=== PATIENT | female | born 1945 | race Caucasian/White ===

== ENCOUNTER 2016-10-17 16:19 | Emergency (ER) | payer MEDICARE, BC ==
[2016-10-17 16:29] VITALS: BP 138/83
--- NOTE | 2016-10-17 17:43 | UC ---
Skin Complaint HPI - HPI Summary HPI Summary: Patient presents with erythematous raised papules with surrounding erythema to the right wrist, and diffuse hives to the right abdomen and right upper thigh. She has had the lesion over the wrist x 1 week and the other 2 patches appeared within the last few days. She was prescribed Triamcinalone 5% cream without improvement. She notes to a hx of shingles on the right side of her body including her face and neck. She states this feels and looks different than shingles. The rash is intensely pruritic. She denies soaps, detergent changes. Denies known environmental exposure or medication changes. - History of Current Complaint Chief Complaint: UCRash Time Seen by Provider: 10/17/16 16:40 Stated Complaint: RASHES Hx Obtained From: Patient ?: No Onset/Duration: Gradual Onset Skin Exposure Onset/Duration: Days Ago Timing: Constant Onset Severity: Moderate Current Severity: Moderate Pain Intensity: 0 Pain Scale Used: 0-10 Numeric Location: Diffuse Aggravating: Nothing Alleviating: Cold Compresses Associated Signs & Symptoms: Positive: Negative - Allergy/Home Medications Allergies/Adverse Reactions: Allergies Allergy/AdvReac Type Severity Reaction Status Date / Time NSAIDs Allergy Hives Verified 11/20/14 09:26 Review of Systems Constitutional: Negative Skin: Rash Eyes: Negative Respiratory: Negative Cardiovascular: Negative Motor: Negative Neurovascular: Negative Musculoskeletal: Negative Psychological: Negative All Other Systems Reviewed And Are Negative: Yes PMH/Surg Hx/FS Hx/Imm Hx Endocrine History: Diabetes - Surgical History Surgical History: Yes Surgery Procedure, Year, and Place: LT KNEE REPLACEMENT, right CARPAL TUNNEL, UMBILICAL HERNIA REPAIR, GALL BLADDER, RT FOOT SURGERY. - Family History Known Family History: Positive: Hypertension - Social History Occupation: Unemployed, Retired Lives: With Family Alcohol Use: Rare Substance Use Type: None Smoking Status (MU): Former Smoker When Did the Patient Quit Smoking/Using Tobacco: - Immunization History Most Recent Tetanus Shot: 2009 Physical Exam Triage Information Reviewed: Yes Appearance: Well-Appearing, No Pain Distress, Well-Nourished Vital Signs: Initial Vital Signs Temp 98.1 F 10/17/16 16:26 Pulse 52 10/17/16 16:26 Resp 18 10/17/16 16:26 BP 138/83 10/17/16 16:26 Pulse Ox 97 10/17/16 16:26 Vital Signs Reviewed: Yes Eye Exam: Normal Eyes: Positive: Conjunctiva Clear Neck exam: Normal Neck: Positive: Supple, Nontender, No Lymphadenopathy Respiratory Exam: Normal Respiratory: Positive: Chest non-tender Cardiovascular Exam: Normal Cardiovascular: Positive: RRR Musculoskeletal Exam: Normal Musculoskeletal: Positive: Strength Intact Neurological Exam: Normal Neurological: Positive: Alert Psychological: Positive: Normal Response To Family Skin Exam: Normal Skin: Positive: Other Course/Dx - Course Course Of Treatment: Intensily pruritic erythematous raised papules with surrounding erythema to the right wrist, and diffuse hives to the right abdomen and right upper thigh. Rash appears to be a contact dermatitis. Based on the dermatologic pattern, it is unlikely this is shingles. No grouped vesicles. Patient denies other symptoms at this time. Triamcinalone 5% given previously. Will give prednisone and atarax. Both safe in elderly. Encouraged benadryl only at night. Follow up with derm. Patient made aware of results and plan and is OK with discharge. Medications reviewed with patient. - Differential Diagnoses - Skin Complaint Differential Diagnoses: Drug Rash, Local Allergic Reaction, Poison [place], Poison [place] - Diagnoses Provider Diagnoses: Contact dermatitis Discharge - Discharge Plan Condition: Stable Disposition: HOME Prescriptions: hydrOXYzine HCL TAB* [Atarax 25 MG TAB*] 25 mg PO TID PRN #15 tab PRN Reason: Itching predniSONE TAB* [Deltasone TAB*] 10 mg PO SEE INSTRUCTIONS #22 tab Patient Education Materials: Contact Dermatitis (ED) Referrals: Desi Dong MD [Primary Care Provider] - Additional Instructions: Follow up with vice president for instruction. Continue to use cream Use Prednisone as prescribed Use Hydroxyzine three times daily as needed for itching, Benadryl 25mg recommended at bedtime Wash hands frequently and try not to touch the affected areas.
== END 2016-10-17 17:17 | disposition home or self-care (01) ==
LOC: UCEAST 16:19
DX: L25.9 Unspecified contact dermatitis, unspecified cause (principal); E11.9 Type 2 diabetes mellitus without complications; Z87.891 Personal history of nicotine dependence
CPT/HCPCS: 99212; G0463

== ENCOUNTER 2019-01-05 10:53 | Emergency (ER) | payer MEDICARE, BC ==
--- OUTSIDE RECORDS SUMMARY | 2019-01-05 10:59 | XMS REPORT | Continuity of Care Document ---
:1945 External Reference #:[id number] Author Name HANANE Rodgers (transmitted by agent of provider Janeth Borrero) Address [address] [place] [address] Care Team Providers Name Role Phone Lena Worthy MD - Internal Care Team Information Electrical Maintenance Mechanic Medicine Desi Dong MD - Internal Care Team Information Electrical Maintenance Mechanic Medicine Colin Tapia MD - Rheumatology Care Team Information Electrical Maintenance Mechanic Samantha Rivrea MD - Hematology & Care Team Information Electrical Maintenance Mechanic [phone] Oncology Problems Active Problems Provider Date Rheumatoid arthritis Desi Dong M.D. Onset: 05/29/2011 Atrial fibrillation Desi Dong M.D. Onset: 11/13/2015 Benign essential hypertension Desi Dong M.D. Onset: 05/29/2011 Monoclonal paraproteinemia Desi Dong M.D. Onset: 02/22/2013 Sleep apnea Desi Dong M.D. Onset: 02/22/2013 Mixed hyperlipidemia Desi Dong M.D. Onset: 05/29/2011 Degenerative joint disease of hand Desi Dong M.D. Onset: 06/01/2010 Lumbosacral spondylosis without myelopathy Colin Tapia M.D. Onset: 2013 Osteoarthritis of knee Colin Tapia M.D. Onset: 01/03/2014 Obesity Carey Mcarthur MD Onset: 03/28/2016 Other synovitis and tenosynovitis, Varun Lozano MD Onset: 08/18/2017 unspecified site Social History Type Date Description Comments Sex Unknown Tobacco Use Start: Unknown End: Former Cigarette Smoker quit in 1974, prior Unknown to that was only a social smoker - not daily ETOH Use Rarely consumes alcohol only when on vacation and a very special occasion Tobacco Use Start: Unknown End: Patient is a former Unknown smoker Recreational Drug Use Denies Drug Use Smoking Status Reviewed: 12/24/18 Patient is a former smoker Exercise Type/Frequency Exercises sporadically Allergies, Adverse Reactions, Alerts Active Allergies Reaction Severity Comments Date Dolobid Urticaria Moderate 10/01/2009 Relafen Urticaria Moderate 10/01/2009 Daypro Urticaria Moderate 10/01/2009 NSAIDS hives 03/29/2017 Medications Active Medications SIG Qnty Indications Ordering Date Provider Walker Swivel Wheels/5 use with 1units M05.79 Zsofia Mitul, 12/24/2018 Adjustment Holes/3" ambulation as ALL ROUND LOGGER 3" Misc needed Hydroxyzine HCL take one tablet 30tabs R21 Jossyofia Mitul, 09/20/2018 25mg Tablets by mouth 3 x ALL ROUND LOGGER daily as needed Clobetasol Propionate apply thin layer 45gm R21 Yojana Galindo MD 09/04/2018 Emollient twice a day on 0.05% Cream affected area Zyrtec Allergy take one tablet 30caps J30.9 Jossyofia Mitul, 03/22/2018 10mg Capsules by mouth in the ALL ROUND LOGGER evening Fluticasone Propionate use 2 sprays in 16units J30.9 Zsofia Mitul, 2017 each nostril one ALL ROUND LOGGER 50mcg/Act Suspension time a day Ventolin HFA inhale 2 puffs 18units J40 Desi 12/05/2017 108(90Base) by mouth four Cotton MArielle mcg/Act Aerosol times a day as needed Azelastine HCL 1 drop each eye 6ml J30.9 Jossyofia Mitul, 10/19/2017 (Ophthalmic) twice daily ALL ROUND LOGGER 0.05% Solution Hydroxychloroquine take 1 tablet 180tabs M05.79 Jossyofia Mitul, 10/19/2017 Sulfate twice a day ALL ROUND LOGGER 200mg Tablets Z79.899 Shingrix 2 doses 6 month 2units Z23 Jossyofirubia Bauman, ALL ROUND LOGGER 09/14/2017 50mcg Suspension apart Rec Methotrexate take 6 tablets 72tabs Z79.899 Zsofia Mitul, [facility] 09/14/2017 2.5mg Tablets every week M05.79 Diclofenac Sodium apply 1 grams on 100gm M25.549 Wilfrido Bauman, 12/19/2016 1% Gel hands twice ALL ROUND LOGGER daily-prn Magnesium Oxide -MG 1 tablet daily 180caps Desi 09/15/2016 Supplement Eusebia Dong 400mg Capsules Wrist Splint use on both wrists QS M25.549 Wilfrido Bauman, 12/12/2014 Elastic/Small/Medium as needed ALL ROUND LOGGER Misc Pantoprazole Sodium take 1 tablet by 180tabs Desi 09/09/2014 40mg mouth twice a day Eusebia Dong Tablets DR Cpap Use nightly 1units Thuy Jovel, 08/10/2014 Device N.P. Potassium Chloride ER Take 1 Tablet By 90tabs Desi 01/19/2014 10Meq Mouth Every Day Eusebia Dong Tablets ER Cpap Mask And Supplies for use at night Thuy Jovel, 08/29/2013 N.P. Clotrimazole/Betamethason apply to affected 15units Desi 02/22/2013 e Dipropionate area twice a day if Eusebia Dong 1-0.05% Cream needed Meclizine HCL 1 tablet 3 times a 30tabs Desi 03/04/2011 12.5mg Tablets day as needed Eusebia Dong Hydrochlorothiazide Take 1 Tablet By 90tabs Desi 03/01/2011 25mg Mouth Once Daily Eusebia Dong Tablets Simvastatin take 1 tablet at 90tabs Desi 08/31/2010 40mg Tablets bedtime. Eusebia Dong Folic Acid take 1 tablet daily 90tabs Z79.899 Wilfrido Bauman, 07/27/2010 1mg Tablets ALL ROUND LOGGER Vitamin D 3 1 tablet once daily Desi 10/06/2009 1000Unit Tablets Eusebia Dong Glucosamine-Chondroitin 1 by mouth twice Desi 10/06/2009 daily Eusebia Dong Capsules Buspirone HCL take 1 tablet By 60tabs Desi 10/01/2009 15mg Tablets Mouth 2 times a Eusebia Dong day. Vitamin B-12 1 po qd 90tabs Unknown 1000mcg Tablets Sub Vesicare 1 by mouth every 30tabs Unknown 10mg Tablets day Eliquis take one by mouth 180tabs Artem Vallejo 5mg Tablets twice a day DO LILIANA Hua Multi Complete/Iron po qd Unknown Tablets Acetaminophen 1-2 tabs 3x a day Unknown 500mg Tablets as needed Humira Pen inject 40 mg 6units Z79.899 Zsofia Mitul, 40mg/0.8ML PNKT subcutaneously ALL ROUND LOGGER every 2 weeks as directed by physician M05.79 Medications Administered in Office Medication SIG Qnty Indications Ordering Provider Date Celestone 3 mg and 3mg Varun Lozano MD 09/08/2017 Injection Celestone 3 mg and 3mg Varun Lozano MD 08/18/2017 Injection Technetium TC 99M Artem Hua DO [facility] 05/17/2017 Tetrofosmin, Per Unit Dose Up To 40 Millicuries Injection NICO Tapia M.D. 05/24/2011 Injection Immunizations CPT Code Status Date Vaccine Lot # [id number] Given 02/05/2018 Fluzone High Dose 67686 Given 02/24/2017 Influenza Virus Vaccine, Quadrivalent, Split, Preservative Free 62063 Given 01/18/2016 Fluzone High Dose 83852 Given 03/09/2015 Influenza Virus Vaccine, Quadrivalent, Split, [id number] Preservative Free 25319 Given 02/25/2014 Pneumococcal Conjugate Vaccine 13 Valent For Intramuscular Use 18178 Given 02/12/2014 Fluzone High Dose 52041 Given 02/22/2013 Flu Vaccine Split Virus Preservative Free For Indiv 3Yr Older [id number] Given 02/14/2011 Afluria Vaccine 05492 Given 08/10/2009 Pneumonia Vaccine 13017 Given 08/10/2009 Tetanus And Diptheria (Td) For Adult Use Preservative Free 50305 Given 02/03/2009 Influenza Virus 3Yrs & Over 84159 Given 07/19/2006 Zoster (Zostavax) 20256 Given 07/19/2006 Zoster (Zostavax) Vital Signs Date Vital Result Comment 12/24/2018 10:01am BP Systolic Sitting 138 mmHg larce cuff /manual BP Diastolic Sitting 80 mmHg larce cuff /manual 12/24/2018 9:40am Height 62 inches 5'2" Weight 238.00 lb Heart Rate 80 /min BP Systolic 152 mmHg BP Diastolic 77 mmHg O2 % BldC Oximetry 98 % BMI (Body Mass Index) 43.5 kg/m2 Results Test Date Facility Test Result H/L Range Note CBC Auto 12/20/2018 [facility] White Blood 6.9 10^3/uL Normal 3.5-10.[address] [place] [address] [phone] Red Blood Count 4.26 10^6/uL Normal 3.70-4.87 Hemoglobin 14.3 g/dL Normal 12.0-16.0 Hematocrit 42 % Normal 35-47 Mean Corpuscular Volume 99 fL High 80-97 Mean Corpuscular Hemoglobin 34 pg High 27-31 Mean Corpuscular HGB Conc 34 g/dL Normal 31-36 Red Cell Distribution Width 14 % Normal 10-15 Platelet Count 232 10^3/uL Normal 150-450 Mean Platelet Volume 8.1 fL Normal 7.4-10.4 Abs Neutrophils 4.2 10^3/uL Normal 1.5-7.7 Abs Lymphocytes 1.8 10^3/uL Normal 1.0-4.8 Abs Monocytes 0.7 10^3/uL Normal 0-0.8 Abs Eosinophils 0.2 10^3/uL Normal 0-0.6 Abs Basophils 0.1 10^3/uL Normal 0-0.2 Abs Nucleated RBC 0.0 10^3/uL Granulocyte % 60.4 % Lymphocyte % 25.4 % Monocyte % 10.6 % Eosinophil % 2.4 % Basophil % 1.2 % Nucleated Red Blood Cells % 0.0 Comp Metabolic 12/20/2018 [facility] Sodium 139 mmol/L Normal 135-[address] [place] [address] [phone] Potassium 4.1 mmol/L Normal 3.5-5.0 Chloride 104 mmol/L Normal 101-111 Co2 Carbon Dioxide 27 mmol/L Normal 22-32 Anion Gap 8 mmol/L Normal 2-11 Glucose 104 mg/dL High 70-100 Blood Urea Nitrogen 8 mg/dL Normal 6-24 Creatinine 0.68 mg/dL Normal 0.51-0.95 BUN/Creatinine Ratio 11.8 Normal 8-20 Calcium 10.3 mg/dL Normal 8.6-10.3 Total Protein 6.8 g/dL Normal 6.4-8.9 Albumin 4.3 g/dL Normal 3.2-5.2 Globulin 2.5 g/dL Normal 2-4 Albumin/Globulin Ratio 1.7 Normal 1-3 Total Bilirubin 0.60 mg/dL Normal 0.2-1.0 Alkaline Phosphatase 100 U/L Normal 34-104 Alt 12 U/L Normal 7-52 Ast 21 U/L Normal 13-39 Egfr Non- 84.4 >60 Egfr 102.1 >60 1 Laboratory test 12/20/2018 [facility] C Reactive 1.05 mg/L Normal <8.[address] [place] [address] [phone] Erythrocyte Sed Rate 17 mm/Hr Normal 0-29 CBC Auto 09/25/2018 [facility] White Blood 7.8 10^3/uL Normal 3.5-10.[address] [place] [address] [phone] Red Blood Count 4.27 10^6/uL Normal 3.70-4.87 Hemoglobin 14.0 g/dL Normal 12.0-16.0 Hematocrit 42 % Normal 35-47 Mean Corpuscular Volume 98 fL High 80-97 Mean Corpuscular Hemoglobin 33 pg High 27-31 Mean Corpuscular HGB Conc 34 g/dL Normal 31-36 Red Cell Distribution Width 14 % Normal 10.5-15 Platelet Count 215 10^3/uL Normal 150-450 Mean Platelet Volume 8.1 fL Normal 7.4-10.4 Abs Neutrophils 5.3 10^3/uL Normal 1.5-7.7 Abs Lymphocytes 1.6 10^3/uL Normal 1.0-4.8 Abs Monocytes 0.7 10^3/uL Normal 0-0.8 Abs Eosinophils 0.2 10^3/uL Normal 0-0.6 Abs Basophils 0.1 10^3/uL Normal 0-0.2 Abs Nucleated RBC 0.0 10^3/uL Granulocyte % 67.2 % Lymphocyte % 20.9 % Monocyte % 8.6 % Eosinophil % 2.4 % Basophil % 0.9 % Nucleated Red Blood Cells % 0.0 Comp Metabolic 09/25/2018 [facility] Sodium 140 mmol/L Normal 135-[address] [place] [address] [phone] Potassium 4.1 mmol/L Normal 3.5-5.0 Chloride 104 mmol/L Normal 101-111 Co2 Carbon Dioxide 28 mmol/L Normal 22-32 Anion Gap 8 mmol/L Normal 2-11 Glucose 97 mg/dL Normal 70-100 Blood Urea Nitrogen 11 mg/dL Normal 6-24 Creatinine 0.76 mg/dL Normal 0.51-0.95 BUN/Creatinine Ratio 14.5 Normal 8-20 Calcium 10.1 mg/dL Normal 8.6-10.3 Total Protein 7.3 g/dL Normal 6.4-8.9 Albumin 4.4 g/dL Normal 3.2-5.2 Globulin 2.9 g/dL Normal 2-4 Albumin/Globulin Ratio 1.5 Normal 1-3 Total Bilirubin 0.70 mg/dL Normal 0.2-1.0 Alkaline Phosphatase 95 U/L Normal 34-104 Alt 11 U/L Normal 7-52 Ast 20 U/L Normal 13-39 Egfr Non- 74.4 >60 Egfr 90.0 >60 2 [place]/Lambda Free 09/25/2018 [facility] [place] Free 2.30 mg/dL Abnormal [address] [place] [address] [phone] Lambda Free Light Chain 1.38 mg/dL 4 [place]/Lambda Free Light Chain 1.67 Abnormal 5 Protein 09/25/2018 [facility] Total 6.8 g/dL 6.3 - Electrophoresis [address] Protein(Pep) 7.9 [place] [address] [phone] Albumin 3.7 g/dL 3.4-4.7 Alpha-1 Globulin 0.2 g/dL 0.1-0.3 Alpha-2 Globulin 1.0 g/dL 0.6-1.0 Beta Globulin 0.9 g/dL 0.7-1.2 Gamma Globulin 1.1 g/dL 0.6-1.6 Albumin/Globulin Ratio 1.16 Impression See Comment 6 CMP Panel 09/17/2018 [facility] Sodium 141 mmol/L Normal 135- [address] [place] [address] [phone] Potassium 4.2 mmol/L Normal 3.5-5.0 Chloride 103 mmol/L Normal 101-111 Co2 Carbon Dioxide 29 mmol/L Normal 22-32 Anion Gap 9 mmol/L Normal 2-11 Glucose 90 mg/dL Normal 70-100 Blood Urea Nitrogen 11 mg/dL Normal 6-24 Creatinine 0.80 mg/dL Normal 0.51-0.95 BUN/Creatinine Ratio 13.8 Normal 8-20 Calcium 10.3 mg/dL Normal 8.6-10.3 Total Protein 6.8 g/dL Normal 6.4-8.9 Albumin 4.4 g/dL Normal 3.2-5.2 Globulin 2.4 g/dL Normal 2-4 Albumin/Globulin Ratio 1.8 Normal 1-3 Total Bilirubin 0.50 mg/dL Normal 0.2-1.0 Alkaline Phosphatase 102 U/L Normal 34-104 Alt 10 U/L Normal 7-52 Ast 19 U/L Normal 13-39 Egfr Non- 70.1 >60 Egfr 84.8 >60 7 CBC W/Auto 09/17/2018 [facility] White Blood 8.0 10^3/uL Normal 3.5-10.[address] [place] [address] [phone] Red Blood Count 4.17 10^6/uL Normal 3.70-4.87 Hemoglobin 14.0 g/dL Normal 12.0-16.0 Hematocrit 41 % Normal 35-47 Mean Corpuscular Volume 98 fL High 80-97 Mean Corpuscular Hemoglobin 34 pg High 27-31 Mean Corpuscular HGB Conc 34 g/dL Normal 31-36 Red Cell Distribution Width 14 % Normal 10.5-15 Platelet Count 229 10^3/uL Normal 150-450 Mean Platelet Volume 8.3 fL Normal 7.4-10.4 Abs Neutrophils 5.0 10^3/uL Normal 1.5-7.7 Abs Lymphocytes 2.0 10^3/uL Normal 1.0-4.8 Abs Monocytes 0.7 10^3/uL Normal 0-0.8 Abs Eosinophils 0.2 10^3/uL Normal 0-0.6 Abs Basophils 0.1 10^3/uL Normal 0-0.2 Abs Nucleated RBC 0.0 10^3/uL Granulocyte % 62.9 % Lymphocyte % 24.7 % Monocyte % 8.5 % Eosinophil % 2.8 % Basophil % 1.1 % Nucleated Red Blood Cells % 0.2 Laboratory test 09/17/2018 [facility] C Reactive < 1.00 Normal <8.[address] Protein mg/[place] [address] [phone] Erythrocyte Sed Rate 32 mm/Hr High 0-29 8 1 Because ethnic data is not always readily available, this report includes an eGFR for both -Americans and non- Americans. The National Kidney Disease Education Program (NKDEP) does not endorse the use of the MDRD equation for patients that are not between the ages of 18 and 70, are , have extremes of body size, muscle mass, or nutritional status, or are non- or non-. According to the National Kidney Foundation, irrespective of diagnosis, the stage of the disease is based on the level of kidney function: Stage Description GFR(mL/min/1.73 m(2)) 1 Kidney damage with normal or decreased GFR 90 2 Kidney damage with mild decrease in GFR 60-89 3 Moderate decrease in GFR 30-59 4 Severe decrease in GFR 15-29 5 Kidney failure <15 (or dialysis) 2 Because ethnic data is not always readily available, this report includes an eGFR for both -Americans and non- Americans. The National Kidney Disease Education Program (NKDEP) does not endorse the use of the MDRD equation for patients that are not between the ages of 18 and 70, are , have extremes of body size, muscle mass, or nutritional status, or are non- or non-. According to the National Kidney Foundation, irrespective of diagnosis, the stage of the disease is based on the level of kidney function: Stage Description GFR(mL/min/1.73 m(2)) 1 Kidney damage with normal or decreased GFR 90 2 Kidney damage with mild decrease in GFR 60-89 3 Moderate decrease in GFR 30-59 4 Severe decrease in GFR 15-29 5 Kidney failure <15 (or dialysis) 3 REFERENCE VALUE 0.3300-1.94 4 REFERENCE VALUE 0.5700-2.63 5 Elevated free light chain ratios between 1.66 and 3.00 may occur due to polyclonal hypergammaglobulinemia or impaired renal clearance. An isolated increased free light chain ratio in this range should be interpreted with caution, and clinical correlation is recommended. REFERENCE VALUE 0.2600-1.65 Test Performed by: [facility] [employer] [place] [address] 6 RESULT: No apparent monoclonal protein on serum electrophoresis. Test Performed by: [facility] [employer] [place] [address] 7 Because ethnic data is not always readily available, this report includes an eGFR for both -Americans and non- Americans. The National Kidney Disease Education Program (NKDEP) does not endorse the use of the MDRD equation for patients that are not between the ages of 18 and 70, are , have extremes of body size, muscle mass, or nutritional status, or are non- or non-. According to the National Kidney Foundation, irrespective of diagnosis, the stage of the disease is based on the level of kidney function: Stage Description GFR(mL/min/1.73 m(2)) 1 Kidney damage with normal or decreased GFR 90 2 Kidney damage with mild decrease in GFR 60-89 3 Moderate decrease in GFR 30-59 4 Severe decrease in GFR 15-29 5 Kidney failure <15 (or dialysis) 8 ORDERED:09/12/18 :03/15/19 STANDING ORDER Procedures Date Code Description Status 10/04/2018 [id number] Mammogram Completed 04/18/2017 [id number] Bone Mineral Density Test Completed 03/24/2016 [id number] Mammogram Completed 03/19/2015 [id number] Bone Mineral Density Test Completed 01/10/2014 [id number] Mammogram Completed 01/01/2013 [id number] Bone Mineral Density Test Completed 01/01/2013 [id number] Mammogram Completed 05/11/2012 [id number] Colonoscopy Completed 12/12/2011 [id number] Mammogram Completed 06/30/2011 [id number] Bone Mineral Density Test Completed 12/09/2010 [id number] Bone Mineral Density Test Completed 12/09/2010 [id number] Mammogram Completed Medical Devices Description No Information Available Encounters Type Date Location Provider Dx Diagnosis Office Visit 09/20/2018 Rheumatology Wilfrido Romek, M05.79 Rheu arthritis w 9:00a [facility] rheu factor mult [facility] site w/o org/sys involv R21 Rash and other nonspecific skin eruption Z79.899 Other halfway (current) drug therapy Office Visit 09/04/2018 11:00a [facility] Internal Isai Daugherty Rash and other Medicine - [facility] nonspecific skin eruption Assessments Date Code Description Provider 12/24/2018 M05.79 Rheumatoid arthritis with rheumatoid factor of Jossyofia HANANE Bauman [facility] site 12/24/2018 Z79.899 Other terminal press operator (current) drug therapy Jossyofia Mitul, ALL ROUND LOGGER 09/20/2018 M05.79 Rheumatoid arthritis with rheumatoid factor of Jossyofia HANANE Bauman [facility] site 09/20/2018 R21 Rash and other nonspecific skin eruption Yancya HANANE Bauman 09/20/2018 Z79.899 Other terminal press operator (current) drug therapy Jossyofia Mitul, ALL ROUND LOGGER 09/04/2018 R21 Rash and other nonspecific skin eruption Yojana Galindo MD Plan of Treatment Future Appointment(s):03/28/2019 11:30 am - HANANE Rodgers at [facility]03/13/2019 11:30 am - Carey Mcarthur MD at [facility]12/24/2018 - SARAN RodgersPM05.79 Rheumatoid arthritis with rheumatoid factor of multiple siteNew Medication:Walker Swivel Wheels/5 Adjustment Holes/3" 3" - use with ambulation as neededComments:Your arthritis seems to be clinically and symptomatically well controlled at this time.Your inflammatory markers are within normal range.Your latest laboratory tests indicate no detectable impairment of kidney and liver functions.Please, continue with the present medication regime.Continue with regular blood tests. You will need to have a blood test done about a week prior to your next appointment. You have a standing lab order on file. Refills will be sent to your pharmacy.Please call the office ifyou develop any sign or symptoms of infection or acute change in your health.Follow up:3 month labs [id number] Other halfway (current) drug therapyComments:Please call if have sign or symptoms of infection. Please be sure to get the flu shot late Januaryor early February. Functional Status Description No Information Available Mental Status Description No Information Available Referrals Description No Information Available
[2019-01-05 11:05] VITALS: BP 136/63
--- NOTE | 2019-01-05 11:43 | UC ---
Back Pain HPI - HPI Summary HPI Summary: 73-year-old woman comes in with a chief complaint of low back pain. Started about 5 days ago. Patient does not know of any specific trauma although she had been doing some lifting. Pain is primarily in the lower lumbar region and radiates horizontally to both sides. Denies any radiation down the buttocks and legs. Pain is worse with twisting turning bending. It's better with rest. At rest there is no pain. She describes the exacerbations pains and spasms in the back. Denies any fevers or chills or abdominal pain or change in urine or bowels. No weakness or numbness. Has taken acetaminophen with minimal relief. - History of Current Complaint Chief Complaint: UCBackPain Stated Complaint: BACK PAIN Time Seen by Provider: 01/05/19 11:23 Pain Intensity: 5 - Allergies/Home Medications Allergies/Adverse Reactions: Allergies Allergy/AdvReac Type Severity Reaction Status Date / Time NSAIDS Allergy Hives Uncoded 01/05/19 11:06 Home Medications: Home Medications Adalimumab (NF) [Humira Pen (NF)] 40 mg SC SEE INSTRUCTIONS 01/05/19 [History Confirmed 01/05/19] Albuterol HFA INHALER* [Ventolin HFA Inhaler*] 2 puff INH Q6H PRN 01/05/19 [ History Confirmed 01/05/19] Cholecalciferol (Vitamin D3) [Vitamin D3] 1,000 unit PO DAILY 01/05/19 [History Confirmed 01/05/19] Clotrimazole/Betamethasone* [Lotrisone Cream*] 1 applic TOPICAL BID PRN [History Confirmed 01/05/19] Cyanocobalamin TAB* [Vitamin B12 TAB*] 1,000 mcg PO DAILY 01/05/19 [History Confirmed 01/05/19] Fluticasone HFA 110 mcg(NF) [Flovent HFA 110 mcg(NF)] 1 puff INH QID 01/05/19 [ History Confirmed 01/05/19] Folic Acid TAB* [Folvite TAB*] 1 mg PO DAILY 01/05/19 [History Confirmed ] Magnesium Oxide [Magnesium] 500 mg PO DAILY 01/05/19 [History Confirmed 01/05/19 ] Meclizine TAB* [Antivert 12.5 TAB*] 12.5 mg PO TID PRN 01/05/19 [History Confirmed 01/05/19] Methotrexate TAB* 6 tab PO WEEKLY 01/05/19 [History Confirmed 01/05/19] Multivitamin/Iron/Folic Acid [Multivitamin with Iron Tablet] 1 each PO DAILY [History Confirmed 01/05/19] Pantoprazole TAB * [Protonix TAB*] 40 mg PO DAILY 01/05/19 [History Confirmed ] Potassium Chlor TAB* [Klor Con ER TAB*] 10 meq PO DAILY 01/05/19 [History Confirmed 01/05/19] PMH/Surg Hx/FS Hx/Imm Hx Previously Healthy: Yes - RA Endocrine History: Dyslipidemia Cardiovascular History: Hypertension Respiratory History: Asthma GI/ History: Gastroesophageal Reflux - Surgical History Surgical History: Yes Surgery Procedure, Year, and Place: LT KNEE REPLACEMENT, right CARPAL TUNNEL, UMBILICAL HERNIA REPAIR, GALL BLADDER, RT FOOT SURGERY. total L shoulder - Family History Known Family History: Positive: Hypertension - Social History Alcohol Use: None Substance Use Type: None Smoking Status (MU): Former Smoker When Did the Patient Quit Smoking/Using Tobacco: - Immunization History Most Recent Tetanus Shot: 2009 Review of Systems All Other Systems Reviewed And Are Negative: Yes Constitutional: Positive: Negative Skin: Positive: Negative Eyes: Positive: Negative ENT: Positive: Negative Respiratory: Positive: Negative Cardiovascular: Positive: Negative Gastrointestinal: Positive: Negative Genitourinary: Positive: Negative Motor: Positive: Negative Neurovascular: Positive: Negative Musculoskeletal: Positive: Other: - SEE HPI Neurological: Positive: Negative Psychological: Positive: Negative Is Patient Immunocompromised?: Yes - RA; ON HUMIRA AND METHOTREXATE Physical Exam Triage Information Reviewed: Yes Appearance: Well-Appearing, No Pain Distress, Well-Nourished Vital Signs: Initial Vital Signs Temp 98.6 F 01/05/19 10:57 Pulse 96 01/05/19 10:57 Resp 16 01/05/19 10:57 BP 136/63 01/05/19 10:57 Pulse Ox 97 01/05/19 10:57 Vital Signs Reviewed: Yes Eye Exam: Normal Eyes: Positive: Conjunctiva Clear Neck: Positive: Supple Respiratory: Positive: Lungs clear, Normal breath sounds, No respiratory distress Cardiovascular: Positive: RRR Abdomen Description: Positive: Nontender, Soft. Negative: CVA Tenderness (R), CVA Tenderness (L) Bowel Sounds: Positive: Present Musculoskeletal: Positive: Strength Intact, ROM Intact, Other: - Tender to palpation lower lumbar area in the midline and also to the sides. Also some tenderness in the midline of the upper lumbar region. No flank tenderness to palpation. Neurological: Positive: Alert, Muscle Tone Normal Skin Exam: Normal Back Pain Course/Dx - Course Course Of Treatment: At this time the patient's exam and history is consistent with low back musculoskeletal pain. She describes the pain as spasm. The pain is intermittent. There is no pain at rest. Pain is worse with any twisting turning bending. No abdominal pain which urinary or bowel symptoms. No neurologic deficits no radiculopathy. Patient denies any history of osteoporosis. We discussed the possibility of compression fracture. Patient cannot take ibuprofen due to her other medications and history of GERD. She's tells me she's had muscle relaxers in the past and tolerated them well. Plan is to use Flexeril primarily in the evening and acetaminophen during the day. Follow-up with her primary care doctor get reevaluated sooner if worse or any questions or concerns. I did let her know that if she didn't get any abdominal pain or the pain was worse or fevers or chills or felt ill or weakness or numbness she needs to get reevaluated in the emergency department. - Differential Dx/Diagnosis Provider Diagnosis: Low back pain Discharge ED - Sign-Out/Discharge Documenting (check all that apply): Patient Departure All imaging exams completed and their final reports reviewed: No Studies - Discharge Plan Condition: Stable Disposition: HOME Prescriptions: Cyclobenzaprine TAB* [Flexeril 10 MG TAB*] 10 mg PO TID PRN #15 tab PRN Reason: Pain - Moderate Patient Education Materials: Acute Low Back Pain (ED), Lower Back Exercises (ED ) Referrals: Desi Dong MD [Primary Care Provider] - Additional Instructions: FOLLOW UP WITH YOUR DOCTOR. GO TO THE EMERGENCY DEPARTMENT IF YOUR CONDITION WORSENS; PAIN, WEAKNESS, NUMBNESS, ABDOMINAL PAIN, YOU FEEL ILL, OR ANY QUESTIONS OR CONCERNS. - Billing Disposition and Condition Condition: STABLE Disposition: Home
== END 2019-01-05 12:02 | disposition home or self-care (01) ==
LOC: UCEAST 10:53
DX: M54.5 Low back pain (principal); M06.9 Rheumatoid arthritis, unspecified; E78.5 Hyperlipidemia, unspecified; I10 Essential (primary) hypertension; K21.9 Gastro-esophageal reflux disease without esophagitis; J45.909 Unspecified asthma, uncomplicated; Z87.891 Personal history of nicotine dependence
CPT/HCPCS: 81003; 87086; 99212; G0463

== ENCOUNTER 2019-01-08 13:58 | Emergency (ER) | payer MEDICARE, BC ==
[2019-01-08 16:57] LABS: Urine Appearance Clear; Urine Bacteria Absent (Absent); Urine Bilirubin Negative (Negative); Urine Blood Negative (Negative); Urine Color Straw; Urine Glucose Negative (Negative); Urine Ketones Negative (Negative); Urine Nitrite Negative (Negative); Urine Protein Negative (Negative); Urine Red Blood Cell Trace(0-2/hpf) (Absent); Urine Specific Gravity 1.004 (1.010-1.030); Urine Squamous Epithelial Cell Present (Absent); Urine Urobilinogen Negative (Negative); Urine White Blood Cell Absent (Absent)
--- NOTE | 2019-01-08 17:20 | ED ---
Back Pain - HPI Summary HPI Summary: This patient is a 73 year old F presenting to [facility] with a chief complaint of lower back pain radiating upwards since one week ago. Pt does not usually have back pain. Pt went to convenient care on 01/05/19, and UA was clear. Per triage, the patient rates the pain 4/10 in severity. Symptoms aggravated by movement. No alleviation by muscle relaxant. Patient denies urinary symptoms, no fever, chills, N/V/D, weakness in legs, issues going to bathroom, numbness. Pt has a PMHx of a fib, sleep apnea, high cholesterol, rheumatoid and osteoarthritis, and anxiety. She has no Hx of IV drug use. Medications reviewed. Allergies noted - History of Current Complaint Chief Complaint: EDBackInjuryPain Stated Complaint: KIDNEY/BACK PAIN PER PT Time Seen by Provider: 01/08/19 16:59 Hx Obtained From: Patient Onset/Duration: Gradual Onset, Lasting Weeks, Still Present Onset/Duration: Started Weeks Ago, Still Present Timing: Constant Back Pain Location: Is Diffuse Severity Initially: Moderate Severity Currently: Moderate Pain Intensity: 4 Pain Scale Used: 0-10 Numeric Character: Spasmodic Aggravating Symptom(s): Movement Alleviating Symptom(s): Nothing Associated Signs And Symptoms: Negative: Weakness, Numbness, Bladder Incontinence, Bowel Incontinence - Allergies/Home Medications Allergies/Adverse Reactions: Allergies Allergy/AdvReac Type Severity Reaction Status Date / Time NSAIDS Allergy Hives Uncoded 01/05/19 11:06 PMH/Surg Hx/FS Hx/Imm Hx Endocrine/Hematology History: Denies: Hx Diabetes, Hx Thyroid Disease Cardiovascular History: Denies: Hx Hypertension Respiratory History: Reports: Hx Chronic Obstructive Pulmonary Disease (COPD) Denies: Hx Asthma GI History: Denies: Hx Ulcer Musculoskeletal History: Denies: Hx Osteoporosis - Cancer History Hx Chemotherapy: No Hx Radiation Therapy: No - Surgical History Surgery Procedure, Year, and Place: LT KNEE REPLACEMENT, right CARPAL TUNNEL, UMBILICAL HERNIA REPAIR, GALL BLADDER, RT FOOT SURGERY. total L shoulder Infectious Disease History: No Infectious Disease History: Reports: Hx Shingles Denies: Hx Clostridium Difficile, Hx Hepatitis, Hx Human Immunodeficiency Virus (HIV), Hx of Known/Suspected MRSA, Hx Tuberculosis, Hx Known/Suspected VRE , Hx Known/Suspected VRSA, History Other Infectious Disease, Traveled Outside the [place] in Last 30 Days - Family History Known Family History: Positive: Hypertension - Social History Lives: With Family Alcohol Use: None Substance Use Type: Reports: None Hx Tobacco Use: No Smoking Status (MU): Former Smoker Review of Systems Negative: Fever, Chills Negative: Vomiting, Diarrhea, Nausea Positive: no symptoms reported Positive: Other - pos - back pain Negative: Weakness, Numbness All Other Systems Reviewed And Are Negative: Yes Physical Exam - Summary Physical Exam Summary: Constitutional: Well-developed, Well-nourished, Alert. (-) Distressed Skin: Warm, Dry HENT: Normocephalic; Atraumatic Eyes: Conjunctiva normal Neck: Musculoskeletal ROM normal neck. (-) JVD, (-) Stridor, (-) Tracheal deviation Cardio: Rhythm regular, rate normal, Heart sounds normal; Intact distal pulses; The pedal pulses are 2+ and symmetric. Radial pulses are 2+ and symmetric. (-) Murmur Pulmonary/Chest wall: Effort normal. (-) Respiratory distress, (-) Wheezes, (-) Rales Abd: Soft, (-) Distension, (-) Guarding, (-) Rebound, Left flank tenderness. Musculoskeletal: (-) Edema, limited ROM in flexion and extension of the back; no midline tenderness Lymph: (-) Cervical adenopathy Neuro: Alert, Oriented x3 Psych: Mood and affect Normal Triage Information Reviewed: Yes Vital Signs On Initial Exam: Initial Vitals Temp Pulse Resp BP Pulse Ox 98.2 F 89 18 154/87 98 01/08/19 14:00 01/08/19 14:00 01/08/19 14:00 01/08/19 14:00 01/08/19 14:00 Vital Signs Reviewed: Yes Diagnostics - Vital Signs Vital Signs Temp Pulse Resp BP Pulse Ox 01/08/19 14:00 98.2 F 89 18 154/87 98 - Laboratory Lab Results: Lab Results 01/08/19 Range/Units 15:58 Urine Color Straw Urine Appearance Clear Urine pH 8.0 (5-9) Ur Specific [place] 1.004 L (1.010-1.030) Urine Protein Negative (Negative) Urine Ketones Negative (Negative) Urine Blood Negative (Negative) Urine Nitrate Negative (Negative) Urine Bilirubin Negative (Negative) Urine Urobilinogen Negative (Negative) Ur Leukocyte Esterase Trace A (Negative) Urine WBC (Auto) Absent (Absent) Urine RBC (Auto) Trace(0-2/hpf) (Absent) Ur Squamous Epith Cells Present A (Absent) Urine Bacteria Absent (Absent) Urine Glucose Negative (Negative) Urine Ascorbic Acid * A (Negative) Result Diagrams: 01/08/19 17:41 01/08/19 17:41 Lab Statement: Any lab studies that have been ordered have been reviewed, and results considered in the medical decision making process. Re-Evaluation - Re-Evaluation First Eval Re-Evaluation Time: 19:45 Comment: Discussed plan to discharge with pt. Back Pain Course/Dx - Course Course Of Treatment: Patient is here with bilateral flank pain. Patient's pain is worse on the left. Patient was seen at urgent care on Monday with a negative UA. Patient continues to have symptoms that she is here. Patient has no reflex symptoms of back pain outside of being on Humira. Due to her urinary use, patient had an ESR and CRP performed which were grossly unremarkable. Patient had a normal white blood cell count. Patient negative UA for any infection. I do not believe this represents a underlying infection, pyelonephritis. Patient was discharged on lidocaine patches and Flexeril. - Diagnoses Provider Diagnoses: Bilateral flank pain Discharge ED - Sign-Out/Discharge Documenting (check all that apply): Patient Departure - Discharge Patient Received Moderate/Deep Sedation with Procedure: No - Discharge Plan Condition: Stable Disposition: HOME Prescriptions: Cyclobenzaprine TAB* [Flexeril 10 MG TAB*] 10 mg PO BID PRN #12 tab PRN Reason: muscle cramping Lidocaine PATCH 5%* [Lidoderm 5% Patch*] 1 patch TRANSDERM DAILY #7 patch Patient Education Materials: Flank Pain (ED) Referrals: Desi Dong MD [Primary Care Provider] - As Soon As Possible Additional Instructions: Continue muscle relaxant, try patches prescribed today, and take Tylenol as well for pain. Please follow up with your primary care physician as soon as possible. PLEASE RETURN TO EMERGENCY DEPARTMENT FOR ANY NEW OR WORSENING SYMPTOMS. - Billing Disposition and Condition Condition: STABLE Disposition: Home - Attestation Statements Document Initiated by Scribe: Yes Documenting Scribe: Vanessa Tovar Provider For Whom Scribe is Documenting (Include Credential): Sonido Diggs MD Scribe Attestation: Vanessa Lima, scribed for Sonido Diggs MD on 01/08/19 at 2053. Scribe Documentation Reviewed: Yes Provider Attestation: The documentation as recorded by the scribeVanessa accurately reflects the service I personally performed and the decisions made by me, Sonido Diggs MD Status of Scribe Document: Viewed
[2019-01-08 17:51] LABS: ABS Basophils 0.1 10^3/ul (0-0.2); ABS Eosinophils 0.2 10^3/ul (0-0.6); ABS Lymphocytes 2.2 10^3/ul (1.0-4.8); ABS Monocytes 0.8 10^3/ul (0-0.8); ABS Neutrophils 4.7 10^3/ul (1.5-7.7); Eosinophil % 2.2 %; Hematocrit 42 % (35-47); Hemoglobin 14.5 g/dL (12.0-16.0); Lymphocyte % 27.8 %; Mean Corpuscular HGB Conc 35 g/dL (31-36); Mean Corpuscular Hemoglobin 34 pg (27-31); Mean Corpuscular Volume 98 fL (80-97); Mean Platelet Volume 7.7 fL (7.4-10.4); Platelet Count 222 10^3/uL (150-450); Red Blood Count 4.25 10^6 /uL (3.70-4.87); Red Cell Distribution Width 14 % (10-15); White Blood Count 7.9 10^3/uL (3.5-10.8)
[2019-01-08 18:21] LABS: Albumin 4.3 g/dL (3.2-5.2); Albumin/Globulin Ratio 1.5 (1-3); BUN/Creatinine Ratio 10.4 (8-20); C Reactive Protein 5.12 mg/L (<8.01); Calcium 10.4 mg/dL (8.6-10.3); EGFR African American 103.8 (>60); EGFR Non-African American 85.8 (>60); Globulin 2.8 g/dL (2-4); Potassium 3.7 mmol/L (3.5-5.0); Total Bilirubin 0.6 mg/dL (0.2-1.0); Total Protein 7.1 g/dL (6.4-8.9)
[2019-01-08 19:48] LABS: Erythrocyte Sed Rate 22 mm/Hr (0-29)
[2019-01-08 20:15] VITALS: BP 157/83
== END 2019-01-08 20:13 | disposition home or self-care (01) ==
LOC: ED 13:58
DX: M54.5 Low back pain (principal); E78.00 Pure hypercholesterolemia, unspecified; J44.9 Chronic obstructive pulmonary disease, unspecified; I48.91 Unspecified atrial fibrillation; Z79.01 Long term (current) use of anticoagulants; M06.9 Rheumatoid arthritis, unspecified; F41.9 Anxiety disorder, unspecified; Z96.652 Presence of left artificial knee joint; Z88.6 Allergy status to analgesic agent; Z87.891 Personal history of nicotine dependence
CPT/HCPCS: 36415; 80053; 81003; 81015; 85025; 85652; 86140; 87086; 99283

== ENCOUNTER 2019-01-26 09:26 | Emergency (ER) | payer MEDICARE, BC ==
--- NOTE | 2019-01-26 09:59 | ED ---
Back Pain - HPI Summary HPI Summary: Patient is a 73-year-old female who presents emergency department for back pain 4 weeks. Patient does not recall any specific injuries or falls. Patient notes that pain starts in her lower back and radiates diffusely. She denies associated symptoms of fever, cough, chest pain, shortness of breath, abdominal pain, vomiting, diarrhea, urinary symptoms. Patient has been seen in the ER twice for this complaint as well as her family doctor. Patient has had blood work and urinalysis that is unremarkable. Patient has been prescribed muscle relaxers only came crutches with minimal relief of pain. Patient is also going to physical therapy with minimal relief of pain. Symptoms are [id number] in severity. Movement makes symptoms worse. Rest makes symptoms better. Also denies associated symptoms of radicular pain into legs, numbness, tingling or weakness, bowel or bladder incontinence or retention. - History of Current Complaint Chief Complaint: EDBackInjuryPain Stated Complaint: "BACK PAIN PER PT" Time Seen by Provider: 01/26/19 09:44 Hx Obtained From: Patient Pain Intensity: 7 - Allergies/Home Medications Allergies/Adverse Reactions: Allergies Allergy/AdvReac Type Severity Reaction Status Date / Time NSAIDS Allergy Hives Uncoded 01/05/19 11:06 PMH/Surg Hx/FS Hx/Imm Hx Previously Healthy: Yes Endocrine/Hematology History: Denies: Hx Diabetes, Hx Thyroid Disease Cardiovascular History: Denies: Hx Hypertension Respiratory History: Reports: Hx Chronic Obstructive Pulmonary Disease (COPD) Denies: Hx Asthma GI History: Denies: Hx Ulcer Musculoskeletal History: Denies: Hx Osteoporosis - Cancer History Hx Chemotherapy: No Hx Radiation Therapy: No - Surgical History Surgery Procedure, Year, and Place: LT KNEE REPLACEMENT, right CARPAL TUNNEL, UMBILICAL HERNIA REPAIR, GALL BLADDER, RT FOOT SURGERY. total L shoulder Infectious Disease History: No Infectious Disease History: Reports: Hx Shingles Denies: Hx Clostridium Difficile, Hx Hepatitis, Hx Human Immunodeficiency Virus (HIV), Hx of Known/Suspected MRSA, Hx Tuberculosis, Hx Known/Suspected VRE , Hx Known/Suspected VRSA, History Other Infectious Disease, Traveled Outside the [place] in Last 30 Days - Family History Known Family History: Positive: Hypertension, Non-Contributory - Social History Occupation: Retired Lives: With Family Alcohol Use: None Substance Use Type: Reports: None Hx Tobacco Use: No Smoking Status (MU): Former Smoker Review of Systems Constitutional: Negative Negative: Fever, Chills Cardiovascular: Negative Negative: Chest Pain Respiratory: Negative Negative: Shortness Of Breath Gastrointestinal: Negative Negative: Abdominal Pain, Vomiting, Nausea Genitourinary: Negative Negative: dysuria, flank pain, hematuria Positive: Other - Low back pain Skin: Negative Neurological: Negative Negative: Weakness, Paresthesia, Numbness All Other Systems Reviewed And Are Negative: Yes Physical Exam Triage Information Reviewed: Yes Vital Signs On Initial Exam: Initial Vitals Temp Pulse Resp BP Pulse Ox 98.8 F 84 18 138/84 95 01/26/19 09:33 01/26/19 09:33 01/26/19 09:33 01/26/19 09:33 01/26/19 09:33 Vital Signs Reviewed: Yes Appearance: Positive: Well-Appearing - Pt. sitting in chair in NAD. Pleasant. present. Skin: Positive: Warm, Dry Head/Face: Positive: Normal Head/Face Inspection Eyes: Positive: Normal, EOMI Neck: Positive: Supple Musculoskeletal: Positive: Normal, Strength/ROM Intact, Other - 5/5 strength in bilateral LEs. Midline tenderness to lower T spine. No CVA tenderness. Neurological: Positive: Normal, CN Intact II-III Psychiatric: Positive: Affect/Mood Appropriate Diagnostics - Vital Signs Vital Signs Temp Pulse Resp BP Pulse Ox 01/26/19 09:33 98.8 F 84 18 138/84 95 - Laboratory Lab Statement: Any lab studies that have been ordered have been reviewed, and results considered in the medical decision making process. Back Pain Course/Dx - Course Course Of Treatment: Patient presenting with ongoing midline tenderness. She is afebrile and well-appearing. No radicular symptoms or evidence of cauda equina syndrome. X-rays of the thoracic and lumbar spine obtained and show multilevel vertebral compressions of unknown chronicity, reading per radiology. They given patient's pain suspect these fractures are new for her. Prescribe her a few days of hydrocodone for pain. Advised to follow-up with PCP next week. Patient understands and agrees with plan. - Diagnoses Differential Diagnosis/HQI/PQRI: Positive: Aneurysm, Arthritis, Fracture, Herniated Disc, Strain, Sprain Provider Diagnoses: Compression fracture, Back pain Discharge ED - Sign-Out/Discharge Documenting (check all that apply): Patient Departure Patient Received Moderate/Deep Sedation with Procedure: No - Discharge Plan Condition: Good Disposition: HOME Prescriptions: Hydrocodone/Acetaminophen [Hydrocodone-Acetamin 5-325 mg] 1 each PO Q6H #20 tablet MDD 4 Patient Education Materials: Vertebral Compression Fracture (ED) Referrals: Desi Dong MD [Primary Care Provider] - Additional Instructions: Call PCP on Monday for a close follow up appointment Take pain medication as directed instead of Tylenol Return to ER if symptoms change or worsen - Billing Disposition and Condition Condition: GOOD Disposition: Home
[2019-01-26] MEDS ORDERED: HYDROcodone/ACETAMIN 5-325 MG* 1 TAB PO ONE (11:19)
[2019-01-26 11:35] VITALS: BP 156/112
== END 2019-01-26 11:33 | disposition home or self-care (01) ==
LOC: ED 09:26
DX: M48.54XA Collapsed vertebra, not elsewhere classified, thoracic region, initial encounter for fracture (principal); M85.88 Other specified disorders of bone density and structure, other site; J44.9 Chronic obstructive pulmonary disease, unspecified; Z96.652 Presence of left artificial knee joint; Z96.612 Presence of left artificial shoulder joint; Z87.891 Personal history of nicotine dependence; Z88.6 Allergy status to analgesic agent; Z79.899 Other long term (current) drug therapy
CPT/HCPCS: 72070; 72110; 99282

== ENCOUNTER 2023-12-13 08:56 | Inpatient (IN) ==
[2023-12-13] MEDS: Morphine 4 MG/ML VIAL (1 ml) IV ONE ×2 (11:11→12:13)
[2023-12-13] MEDS: Lactated Ringers 1000 ml BAG 1,000 ML IV ONE ×2 (11:11→18:12)
[2023-12-13 11:25] LABS: ABS Lymphocytes 0.7 10^3/uL (1.0-4.8); ABS Monocytes 1.4 10^3/uL (0.0-0.9); ABS Neutrophils 16.2 10^3/uL (1.5-7.6); ABS Nucleated RBC 0.01 10^3/ul; Eosinophil % 0.1 %; Hematocrit 26.4 % (35-45); Hemoglobin 8.2 g/dL (11.5-14.3); Lymphocyte % 3.8 %; Mean Corpuscular Hgb Conc 31.2 g/dL (31-36); Mean Platelet Volume 6.6 fL (7.5-11.2); Nucleated Red Blood Cells % 0.1 %/100WBC (0.0-0.8); Platelet Count 465 10^3/uL (150-450); Red Blood Count 2.75 10^6/uL (3.63-4.92); Red Cell Distribution Width 20.9 % (12-17); White Blood Count 18.3 10^3/uL (3.8-11.8)
[2023-12-13 12:03] LABS: ALT 5 U/L (7-52); Albumin 3.1 g/dL (3.2-5.2); Albumin/Globulin Ratio 1.2 (1-3); Alkaline Phosphatase 70 U/L (35-149); Anion Gap 7 mmol/L (2-16); Blood Urea Nitrogen 12 mg/dL (6-24); C Reactive Protein 112.77 mg/L (<8.01); CO2 Carbon Dioxide 26 mmol/L (22-32); Calcium 8.9 mg/dL (8.6-10.3); Chloride 101 mmol/L (101-111); Creatinine, Serum 0.52 mg/dL (0.51-0.95); Globulin 2.5 g/dL (2-4); Glucose 106 mg/dL (70-100); Sodium 134 mmol/L (135-145); Total Bilirubin 0.5 mg/dL (0.2-1.0); Total Protein 5.6 g/dL (6.4-8.9); eGFR CKD-EPI 93.9 (>60)
[2023-12-13] MEDS: Iohexol 300 (CONTRAST) 10 ML SDV IV ONE (13:09)
[2023-12-13 14:22] LABS: Potassium Redraw 4.3 mmol/L (3.5-5.0)
[2023-12-13] MEDS: Piperacillin/Tazobac 3.375 BAG 3.375 GM/100 ML BAG IV ONE (14:34)
[2023-12-13 16:41] LABS: Urine Appearance Clear; Urine Bilirubin Negative (Negative); Urine Blood Negative (Negative); Urine Color Light-Yellow; Urine Glucose Negative (Negative); Urine Ketones Negative (Negative); Urine Nitrite Negative (Negative); Urine Protein Trace (Negative); Urine Specific Gravity >1.050 (1.002-1.030); Urine Urobilinogen Negative (Negative); Urine pH 6.5 (5.0-8.0)
[2023-12-13] MEDS ORDERED: Zosyn per Pharmacy NOTE FOLLOW UP SCH (18:00)
[2023-12-13] MEDS: ZOSYN 3.375 GM Q8H per EXTENDED INFUSION IV SCH (19:49)
[2023-12-13] MEDS: Morphine 2 MG/ML SYRINGE IV PRN (23:16)
[2023-12-14 06:09] LABS: Hematocrit 26.3 % (35-45); Hemoglobin 8.2 g/dL (11.5-14.3); Mean Corpuscular Hgb Conc 31.1 g/dL (31-36); Mean Corpuscular Volume 96.5 fL (80-97); Mean Platelet Volume 6.4 fL (7.5-11.2); Platelet Count 437 10^3/uL (150-450); Red Blood Count 2.73 10^6/uL (3.63-4.92); Red Cell Distribution Width 20.6 % (12-17); White Blood Count 23.6 10^3/uL (3.8-11.8)
[2023-12-14 07:02] LABS: Calcium 8.3 mg/dL (8.6-10.3); Creatinine, Serum 0.54 mg/dL (0.51-0.95); Potassium 3.9 mmol/L (3.5-5.0)
[2023-12-14 07:44] LABS: ABS Lymphocytes 0.6 10^3/uL (1.0-4.8); ABS Nucleated RBC 0.01 10^3/ul; Eosinophil % 0.1 %; Lymphocyte % 2.4 %
[2023-12-14] MEDS: Potassium Chlor 10 meq TAB PO SCH (08:38)
[2023-12-14] MEDS: Solifenacin 5 mg TAB (NF) PO SCH (08:39)
[2023-12-14] MEDS: MAGNESIUM CITRATE 100 MG PO SCH (08:40)
[2023-12-15 07:06] LABS: Hematocrit 24.9 % (35-45); Hemoglobin 7.9 g/dL (11.5-14.3); Mean Corpuscular Hemoglobin 30.6 pg (27-33); Mean Corpuscular Hgb Conc 31.9 g/dL (31-36); Mean Corpuscular Volume 95.9 fL (80-97); Mean Platelet Volume 6.8 fL (7.5-11.2); Platelet Count 412 10^3/uL (150-450); Red Cell Distribution Width 20.1 % (12-17); White Blood Count 21.2 10^3/uL (3.8-11.8)
[2023-12-15 07:13] LABS: ABS Eosinophils 0.1 10^3/uL (0.0-0.5); ABS Lymphocytes 0.5 10^3/uL (1.0-4.8); ABS Monocytes 0.5 10^3/uL (0.0-0.9); ABS Neutrophils 20.1 10^3/uL (1.5-7.6); Eosinophil % 0.2 %; Lymphocyte % 2.6 %
[2023-12-15 07:29] LABS: Calcium 7.8 mg/dL (8.6-10.3); Creatinine, Serum 0.46 mg/dL (0.51-0.95); Potassium 3.8 mmol/L (3.5-5.0); eGFR CKD-EPI 96.7 (>60)
[2023-12-15] MEDS: Enoxaparin 40 MG/0.4 ML SYR SUBCUT SCH (16:27)
[2023-12-15] MEDS: Albuterol HFA INHALER 8 gm MDI INH PRN (17:33)
[2023-12-17 06:59] LABS: ABS Eosinophils 0.4 10^3/uL (0.0-0.5); ABS Lymphocytes 0.5 10^3/uL (1.0-4.8); ABS Monocytes 0.3 10^3/uL (0.0-0.9); ABS Neutrophils 9.5 10^3/uL (1.5-7.6); ABS Nucleated RBC 0.01 10^3/ul; Eosinophil % 3.7 %; Hematocrit 25.4 % (35-45); Hemoglobin 8.2 g/dL (11.5-14.3); Lymphocyte % 4.5 %; Mean Corpuscular Hemoglobin 30.9 pg (27-33); Mean Corpuscular Hgb Conc 32.1 g/dL (31-36); Mean Corpuscular Volume 96.1 fL (80-97); Mean Platelet Volume 6.8 fL (7.5-11.2); Nucleated Red Blood Cells % 0.1 %/100WBC (0.0-0.8); Platelet Count 384 10^3/uL (150-450); Red Blood Count 2.64 10^6/uL (3.63-4.92); Red Cell Distribution Width 18.8 % (12-17); White Blood Count 10.7 10^3/uL (3.8-11.8)
[2023-12-17 08:30] LABS: Calcium 7.9 mg/dL (8.6-10.3); Creatinine, Serum 0.48 mg/dL (0.51-0.95); Potassium 3.4 mmol/L (3.5-5.0); eGFR CKD-EPI 95.7 (>60)
[2023-12-17 09:06] LABS: Magnesium 1.9 mg/dL (1.9-2.7)
[2023-12-17] MEDS: Potassium Chloride LIQUID 20 MEQ/15 ML LIQUID PO ONE (11:29)
[2023-12-18] MEDS: Iohexol 300 (CONTRAST) 10 ML SDV IV ONE (08:35)
[2023-12-18 10:35] LABS: Calcium 7.6 mg/dL (8.6-10.3); Creatinine, Serum 0.43 mg/dL (0.51-0.95); Potassium 3.5 mmol/L (3.5-5.0); eGFR CKD-EPI 98.3 (>60)
[2023-12-18 13:22] LABS: INR 1.29 (0.83-1.13)
[2023-12-19] MEDS: Lactated Ringers 1000 ml BAG 1,000 ML IV SCH (09:00)
[2023-12-19] MEDS: CMCS:Solifenacin 5 mg TAB (NF) PO SCH (10:46)
[2023-12-19] MEDS: fentaNYL 100 mcg/2 ml 50 MCG/ML VIAL ONE (14:14)
[2023-12-19] MEDS: Buffered Lidocaine 1% SYRIN 1 ml INTRADERM ONE (15:53)
[2023-12-20 06:26] LABS: ABS Basophils 0.1 10^3/uL (0.0-0.1); ABS Eosinophils 0.2 10^3/uL (0.0-0.5); ABS Lymphocytes 0.5 10^3/uL (1.0-4.8); ABS Monocytes 0.9 10^3/uL (0.0-0.9); ABS Neutrophils 10.1 10^3/uL (1.5-7.6); ABS Nucleated RBC 0.01 10^3/ul; Eosinophil % 2.1 %; Hematocrit 27.8 % (35-45); Hemoglobin 8.9 g/dL (11.5-14.3); Mean Corpuscular Hemoglobin 30.4 pg (27-33); Mean Corpuscular Hgb Conc 32.1 g/dL (31-36); Mean Corpuscular Volume 94.8 fL (80-97); Mean Platelet Volume 6.8 fL (7.5-11.2); Nucleated Red Blood Cells % 0.1 %/100WBC (0.0-0.8); Platelet Count 407 10^3/uL (150-450); Red Blood Count 2.94 10^6/uL (3.63-4.92); Red Cell Distribution Width 18.6 % (12-17); White Blood Count 11.8 10^3/uL (3.8-11.8)
[2023-12-20 06:57] LABS: % Iron Saturation 9 % (15-55); .Transferrin 158 mg/dL (203-362); Anion Gap 7 mmol/L (2-16); Blood Urea Nitrogen 4 mg/dL (6-24); CO2 Carbon Dioxide 27 mmol/L (22-32); Calcium 7.6 mg/dL (8.6-10.3); Chloride 103 mmol/L (101-111); Creatinine, Serum 0.41 mg/dL (0.51-0.95); Glucose 90 mg/dL (70-100); Iron < 20 ug/dL (50-212); Potassium 3.4 mmol/L (3.5-5.0); Sodium 137 mmol/L (135-145); Total Iron Binding Capacity 221 mcg/dL (250-450); Transferrin 158 mg/dL (203-362); Unsaturated Iron Binding 201 ug/dL; eGFR CKD-EPI 99.4 (>60)
[2023-12-20 07:17] LABS: Ferritin 105.5 ng/mL (11-307)
[2023-12-20 07:20] LABS: Folate 13.19 ng/mL (5.90-24.80)
[2023-12-20 07:22] LABS: Vitamin B12 > 1450 pg/mL (180-914)
[2023-12-20] MEDS: Potassium Chloride LIQUID 20 MEQ/15 ML LIQUID PO ONE (09:02)
[2023-12-21 08:35] LABS: Rapid COVID-19 Molecular Undetected (Undetected)
[2023-12-21 10:12] VITALS: BP 127/61
== END 2023-12-21 13:10 | DRG 871 ==
LOC: ED 08:56 → EDHOLD 08:56 → MED 20:28 → SUATTDRO 12-14 09:34
PROVIDERS: ADMIT Internal Medicine; ATTEND Internal Medicine